=== PATIENT | male | born 2000 | race Two or more races ===

== ENCOUNTER 2022-06-05 19:25 | Emergency (ER) | payer SELFPAY ==
[~2022-06-05] VITALS: Ht 170.2 cm; Wt 68.2 kg
[2022-06-05 19:42] VITALS: BP 144/74
== END 2022-06-05 23:14 | disposition left against medical advice (07) ==
LOC: EDBD 19:25 → M ED 19:25
DX: Z53.29 Procedure and treatment not carried out because of patient's decision for other reasons (principal)